=== PATIENT | female | born 1970 | race Caucasian/White ===

== ENCOUNTER 2019-07-05 07:07 | Day surgery (SDC) | payer OTHER ==
[~2019-07-05] VITALS: Ht 162.6 cm; Wt 77.5 kg
[~2019-07-05 07:07] MED LIST: ASPI325T17 PO; BUPIVACAINE/PF 0.5% ONE; FLUT9.9S NS; ISOSULFAN BLUE 10 MG/ML, 5ML IV ONE; MELO7.5T31 PO
[2019-07-05] MEDS ORDERED: LACTATED RINGERS 1,000 ML IV SCH (07:32)
[2019-07-05] MEDS ORDERED: GABAPENTIN 300 MG CAPSULE PO ONE (08:00)
[2019-07-05] MEDS ORDERED: ACETAMINOPHEN 500 MG TABLET PO ONE (08:00)
[2019-07-05] MEDS ORDERED: SCOPOLAMINE PATCH, 1.5MG PATCH.TD72 TD ONE (08:00)
[2019-07-05] MEDS ORDERED: LIDOCAINE 1%, 10ML ONE (08:04)
[2019-07-05] MEDS ORDERED: FENTANYL PF 250 MCG/5ML ONE (08:54)
[2019-07-05] MEDS ORDERED: MIDAZOLAM 1 MG/ML, 2ML ONE (08:54)
[2019-07-05 08:59] LABS: HCG UR SG 1.017 (1.003-1.030)
[2019-07-05] MEDS ORDERED: CEFAZOLIN 1,000 MG ONE (08:59)
[2019-07-05] MEDS ORDERED: ROCURONIUM 10MG/ML,5ML ONE (08:59)
[2019-07-05] MEDS ORDERED: DEXAMETHASONE 4 MG/ML, 1ML ONE (08:59)
[2019-07-05] MEDS ORDERED: GLYCOPYRROLATE 0.2MG/1ML, 5ML ONE (08:59)
[2019-07-05] MEDS ORDERED: NEOSTIGMINE 1 MG/ML, 10ML ONE (08:59)
[2019-07-05] MEDS ORDERED: PROPOFOL 10 MG/ML, 20ML ONE (08:59)
[2019-07-05] MEDS ORDERED: ONDANSETRON 2MG/ML, 2ML ONE (08:59)
[2019-07-05] MEDS ORDERED: PROPOFOL 50 ML ONE (09:41)
[2019-07-05] MEDS ORDERED: MORPHINE SULFATE 4 MG/ML, 1ML IVPush PRN (10:00)
[2019-07-05] MEDS ORDERED: LABETALOL 5MG/ML, 20ML IV PRN (10:00)
[2019-07-05] MEDS ORDERED: OXYcodone 5 MG/5 ML ORAL.SOL UDC PO PRN (10:00)
[2019-07-05] MEDS ORDERED: PROMETHAZINE 25 MG/ML, 1ML IV PRN (10:00)
[2019-07-05] MEDS ORDERED: hydrALAzine 20 MG/ML, 1ML IV PRN (10:00)
[2019-07-05] MEDS ORDERED: MEPERIDINE/PF 25MG/ML,1ML IVPush PRN (10:00)
[2019-07-05] MEDS ORDERED: HALOPERIDOL 5 MG/ML IV PRN (10:00)
[2019-07-05] MEDS ORDERED: FENTANYL PF 100 MCG/2ML IV PRN (10:00)
[2019-07-05] MEDS ORDERED: HYDROmorphone 2 MG/ML, 1ML IVPush PRN (10:00)
[2019-07-05] MEDS ORDERED: EPINEPHRINE 1 MG/ML, 1ML INFIL ONE (10:10)
[2019-07-05] MEDS ORDERED: KETOROLAC 30 MG/1 ML ONE (10:22)
== END 2019-07-05 12:20 | disposition home or self-care (01) ==
LOC: OUT 07:07
PROVIDERS: ATTEND Surgery
DX: C50.411 Malignant neoplasm of upper-outer quadrant of right female breast (principal); Z17.0 Estrogen receptor positive status [ER+]; Z72.89 Other problems related to lifestyle; Z79.82 Long term (current) use of aspirin; Z79.1 Long term (current) use of non-steroidal anti-inflammatories (NSAID); Z79.899 Other long term (current) drug therapy; Z98.890 Other specified postprocedural states; Z80.3 Family history of malignant neoplasm of breast; Z82.49 Family history of ischemic heart disease and other diseases of the circulatory system
CPT/HCPCS: 19301; 38525; 38792; 76098; 81025; 88305; 88307; 88333; A9541; C9898; J0171; J0690; J1100; J1885; J2250; J2405; J2704; J2710; J3010; J7120

== ENCOUNTER → 2019-07-30 | Outpatient (CLI) | payer OTHER ==
[~2019-07-30] MED LIST changes: -BUPIVACAINE/PF 0.5% ONE; -ISOSULFAN BLUE 10 MG/ML, 5ML IV ONE
== END | disposition home or self-care (01) ==
LOC: ROC 08:03
PROVIDERS: ATTEND Radiology Radiation Oncology
DX: C50.911 Malignant neoplasm of unspecified site of right female breast (principal); N92.4 Excessive bleeding in the premenopausal period
CPT/HCPCS: 99214; G0463

== ENCOUNTER 2019-11-04 10:01 | Outpatient (CLI) | payer OTHER | END 2019-11-04 23:59 | disposition home or self-care (01) | LOC: ROC 10:01 | PROVIDERS: ATTEND Radiology Radiation Oncology | DX: Z08 Encounter for follow-up examination after completed treatment for malignant neoplasm (principal); C50.411 Malignant neoplasm of upper-outer quadrant of right female breast | CPT/HCPCS: 99213; G0463 ==

== ENCOUNTER → 2020-01-10 | Outpatient (CLI) | payer OTHER | END | disposition home or self-care (01) | LOC: CFH 09:08 | PROVIDERS: ATTEND Internal Medicine Hematology & Oncology | DX: C50.811 Malignant neoplasm of overlapping sites of right female breast (principal); Z98.890 Other specified postprocedural states | CPT/HCPCS: 76642; 77065; G0279 ==

== ENCOUNTER 2020-03-27 07:41 | Outpatient (CLI) | payer OTHER | END 2020-03-27 23:59 | disposition home or self-care (01) | LOC: ROC 07:41 | PROVIDERS: ATTEND Radiology Radiation Oncology | DX: Z08 Encounter for follow-up examination after completed treatment for malignant neoplasm (principal); Z85.3 Personal history of malignant neoplasm of breast; Z92.3 Personal history of irradiation | CPT/HCPCS: 99213; G0463 ==

== ENCOUNTER → 2020-06-02 | Outpatient (CLI) | payer OTHER | END | disposition home or self-care (01) | LOC: CFH 10:17 | PROVIDERS: ATTEND Radiology Radiation Oncology | DX: C50.411 Malignant neoplasm of upper-outer quadrant of right female breast (principal) | CPT/HCPCS: 77066; G0279 ==

== ENCOUNTER → 2020-07-31 | Outpatient (CLI) | payer OTHER | END | disposition home or self-care (01) | LOC: ROC 12:41 | PROVIDERS: ATTEND Radiology Radiation Oncology | DX: Z08 Encounter for follow-up examination after completed treatment for malignant neoplasm (principal); Z85.3 Personal history of malignant neoplasm of breast | CPT/HCPCS: 99212; G0463 ==

== ENCOUNTER → 2021-04-24 | Outpatient (CLI) | payer OTHER | END | disposition home or self-care (01) | LOC: ROC 07:52 | PROVIDERS: ATTEND Radiology Radiation Oncology | DX: Z08 Encounter for follow-up examination after completed treatment for malignant neoplasm (principal); Z85.3 Personal history of malignant neoplasm of breast | CPT/HCPCS: 99212; G0463 ==